=== PATIENT | female | born 1995 ===

== ENCOUNTER → 2021-11-20 | Outpatient (CLI) | payer OTHER ==
--- NOTE | 2021-11-20 16:23 | RAD ---
EXAM: CT head without contrast INDICATION: Headaches for 2 weeks. History of stent and hydrocephalus COMPARISON: None TECHNIQUE: Axial CT imaging through the head without intravenous contrast. Sagittal and coronal refor mats were obtained. One or more of the following individualized dose reduction techniques were utilized for this examinat ion: 1. Automated exposure control 2. Adjustment of the mA and/or kV according to patient size 3. Use of iterative reconstruction technique. FINDINGS: There is a left parietal approach ventriculostomy catheter terminating near the right frontal horn. T he frontal horns and bodies of the lateral ventricles are slitlike. The third ventricle and atria of the lateral ventricles appear mildly enlarged, possibly due to ex vacuo dilatation. There appears to be encephalomalacia along the third ventricle and atria of the lateral ventricles. The fourth ventric le is normal. 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 There is no intracranial hemorrhage, acute infarct, or mass lesion. There is a left parietal razia hole. The paranasal sinuses and mastoid air ce lls are clear. Globes and orbits are intact. IMPRESSION: 1. Left parietal approach ventriculostomy catheter terminating near the right frontal horn. No hydroc ephalus. There is mild enlargement of the third ventricle and atria of the lateral ventricles, which may due to ex vacuo dilatation from adjacent encephalomalacia. The rest of the lateral ventricles are slitlike and the fourth ventricle is normal. There is no prior exam available for comparison 2. Dysgenesis of the corpus callosum. Electronically signed by: Edda Nixon MD (11/20/2021 4:20 PM) [id number]
== END ==
LOC: CT 13:26
PROVIDERS: ATTEND Family Medicine
DX: G91.8 Other hydrocephalus (principal); G93.89 Other specified disorders of brain
CPT/HCPCS: 70450